=== PATIENT | male | born 1995 | race Caucasian/White ===

== ENCOUNTER 2021-10-01 15:47 | Emergency (ER) | payer BC, OTHER ==
[2021-10-01] MEDS ORDERED: Lactated Ringers 1,000 ML IV ONE (16:05)
[2021-10-01] MEDS ORDERED: Dexamethasone 10 MG/ML SDV IVPUSH ONE (16:05)
[2021-10-01] MEDS ORDERED: Ketorolac 30 MG/ML SDV IVPUSH ONE (16:05)
[2021-10-01 17:00] LABS: BLOOD UREA NITROGEN,BUN 9 mg/dL (7.0-18.0); CHLORIDE,CL 99 mmol/L (98-107); GLUCOSE RANDOM 113 mg/dL (74-106); POTASSIUM,K 4.1 mmol/L (3.5-5.1); SODIUM,NA 137 mmol/L (136-148)
[2021-10-01 17:45] VITALS: BP 136/80; PULSE 96
== END 2021-10-01 17:37 | disposition home or self-care (01) ==
LOC: MW.ED 15:47
DX: B27.90 Infectious mononucleosis, unspecified without complication (principal); E66.9 Obesity, unspecified; Z68.41 Body mass index [BMI] 40.0-44.9, adult
CPT/HCPCS: 36415; 80048; 85025; 86308; 87651; 96374; 96375; 99283; J1100; J1885; J7120

== ENCOUNTER 2021-10-05 17:54 | Emergency (ER) | payer OTHER ==
[2021-10-05] MEDS ORDERED: Sodium Chloride 0.9% 1,000 ML IV ONE (18:08)
[2021-10-05] MEDS ORDERED: Dexamethasone 10 MG/ML SDV IVPUSH ONE (18:09)
[2021-10-05 19:01] LABS: BLOOD UREA NITROGEN,BUN 17 mg/dL (7.0-18.0); CARBON DIOXIDE,CO2 23.6 mmol/L (21.0-32.0); CHLORIDE,CL 102 mmol/L (98-107); GLUCOSE RANDOM 117 mg/dL (74-106); POTASSIUM,K 4.4 mmol/L (3.5-5.1); SODIUM,NA 135 mmol/L (136-148)
[2021-10-05] MEDS ORDERED: Iopamidol 755 MG/ML 500 ML Multipack Bottle IVPUSH ONE (19:02)
[2021-10-05] MEDS ORDERED: Ketorolac 30 MG/ML SDV IVPUSH ONE (19:06)
[2021-10-05 22:16] VITALS: BP 131/86; PULSE 75
== END 2021-10-05 20:39 | disposition home or self-care (01) ==
LOC: MW.ED 17:54
DX: B27.90 Infectious mononucleosis, unspecified without complication (principal); Z79.899 Other long term (current) drug therapy
CPT/HCPCS: 36415; 70491; 80053; 85025; 96374; 96375; 99284; J1100; J1885; J7030; Q9967